=== PATIENT | male | born 1950 | race Caucasian/White ===

== ENCOUNTER 2017-09-07 14:52 | Emergency (ER) | payer MEDICARE, BC ==
[2017-09-07 15:52] VITALS: BP 147/80
[2017-09-07] MEDS ORDERED: Albuterol 2.5 MG/3 ML NEB.SOL* (0.083%) INH ONE (16:10)
[2017-09-07] MEDS ORDERED: Ipratropium 0.5MG/2.5ML NEB* 0.5 MG/2.5 ML NEB.SOLN INH ONE (16:10)
[2017-09-07] MEDS ORDERED: predniSONE TAB* 20 MG PO ONE (16:10)
--- NOTE | 2017-09-07 16:15 | UC ---
Respiratory Complaint HPI - HPI Summary HPI Summary: Patient presents with over one week of cough, wheeze and shortness of breath. No fever, ear pain, sore throat, nausea/vomiting. Is using inhaler at home with only transient relief. Saw his PCP 3 days ago and was diagnosed with a viral illness and given benzonatate to help with cough. Patient states symptoms have continued to worsen. He is feeling wheezy and short of breath. He reports frequent coughing fits and has occasional blood-tinged sputum. - History of Current Complaint Chief Complaint: UCRespiratory Stated Complaint: COUGH,CONGESTION Time Seen by Provider: 09/07/17 15:46 Hx Obtained From: Patient, Family/Cargo Supervisor - Onset/Duration: Gradual Onset, Lasting Days, Still Present Timing: Constant Severity Initially: Moderate Severity Currently: Moderate Pain Intensity: 0 Pain Scale Used: 0-10 Numeric Character: Cough: Productive Aggravating Factors: Deep Breaths Alleviating Factors: Bronchodilator Associated Signs And Symptoms: Positive: Dyspnea, Wheezing, URI. Negative: Fever, Chills, Pleuritic Chest Pain - Allergies/Home Medications Allergies/Adverse Reactions: Allergies Allergy/AdvReac Type Severity Reaction Status Date / Time No Known Allergies Allergy Verified 09/07/17 15:51 Home Medications: Home Medications Albuterol HFA INHALER* [Ventolin HFA Inhaler*] 1 puff INHH 09/07/17 [History] Atorvastatin* [Lipitor*] 10 mg PO DAILY 09/07/17 [History Confirmed 09/07/17] Benzonatate CAP* [Tessalon 100 MG CAP*] 100 mg PO Q6HR 09/07/17 [History Confirmed 09/07/17] guaiFENesin [Mucinex] 09/07/17 [History] PMH/Surg Hx/FS Hx/Imm Hx - Additional Past Medical History Additional PMH: GEORGINA ON CPAP Cardiovascular History: Hypertension Respiratory History: Asthma Cancer History: Prostate Cancer - Surgical History Surgery Procedure, Year, and Place: prostate surgery, hernia - Family History Known Family History: Positive: Hypertension - Social History Alcohol Use: Occasionally Substance Use Type: None Smoking Status (MU): Never Smoked Tobacco Review of Systems Constitutional: Fatigue Respiratory: Shortness Of Breath, Cough, Other - WHEEZE Cardiovascular: Negative Gastrointestinal: Negative All Other Systems Reviewed And Are Negative: Yes Physical Exam Triage Information Reviewed: Yes Appearance: Well-Appearing, No Pain Distress, Well-Nourished Vital Signs: Initial Vital Signs Temp 98.3 F 09/07/17 15:44 Pulse 64 09/07/17 15:44 Resp 20 09/07/17 15:44 BP 147/80 09/07/17 15:44 Pulse Ox 94 09/07/17 15:44 Vital Signs Reviewed: Yes Eyes: Positive: Conjunctiva Clear ENT: Positive: Hearing grossly normal, Pharynx normal, TMs normal Neck: Positive: Supple, Nontender, No Lymphadenopathy Respiratory: Positive: No respiratory distress, No accessory muscle use, Decreased breath sounds, Wheezing - DIFFUSELY, Other: - SPEECH IS SOMEWHAT PRESSURED. Cardiovascular Exam: Normal Abdomen Description: Positive: Nontender, Soft Musculoskeletal: Positive: No Edema Neurological: Positive: Alert Psychological: Positive: Age Appropriate Behavior Skin: Negative: rashes UC Diagnostic Evaluation - Laboratory O2 Sat by Pulse Oximetry: 94 - Radiology Xray Interpretation: No Acute Changes - CXR Radiology Interpretation Completed By: Radiologist Re-Evaluation - Re-Evaluation First Eval Re-Evaluation Time: 16:40 - PT FEELS IMPROVED AFTER 60MG PREDNISONE AND DUONEB. SPEAKING MORE EASILY Change: Improved Respiratory Course/Dx - Course Course Of Treatment: REPEAT PULSE OX 97% - Differential Dx/Diagnosis Provider Diagnoses: ACUTE BRONCHITIS WITH BRONCHOSPASM Discharge - Sign-Out/Discharge Documenting (check all that apply): Discharge - Discharge Plan Condition: Stable Disposition: HOME Prescriptions: Azithromycin 500 mg PO DAILY #5 tab Inhaler, Assist Devices [Aerochamber Mini Aerosol] 1 mis XX Q4H PRN #1 mis PRN Reason: Cough predniSONE TAB* [Deltasone TAB*] 50 mg PO DAILY #4 tab Patient Education Materials: Acute Bronchitis (ED), Bronchospasm (ED) Referrals: Eugene Simmons MD [Primary Care Provider] - If Needed Additional Instructions: CHEST XRAY TODAY UNREMARKABLE. YOU HAD SOME IMPROVEMENT IN SYMPTOMS AFTER DUONEB AND PREDNISONE. YOUR SYMPTOMS MAY BE VIRALLY MEDIATED BUT GIVEN THE LENGTH OF TIME YOU HAVE BEEN ILL AND THAT FACT THAT YOUR SYMPTOMS ARE WORSENING WE WILL COVER YOU WITH ANTIBIOTICS. IF YOU START THE MEDICINE BE SURE TO TAKE IT FOR THE FULL COURSE. REST, HYDRATE, OTC MEDS NEEDED. WILL ALSO TREAT WITH PREDNISONE TO HELP WITH AIRWAY INFLAMMATION. CONTINUE YOUR ALBUTEROL INHALER AND COUGH MEDICINE PRESCRIBED. SEEK FOLLOW-UP WITH YOUR PCP IF YOU ARE NOT IMPROVING OVER THE NEXT 1-2 WEEKS. - Billing Disposition and Condition Condition: STABLE Disposition: HOME
--- NOTE | 2017-09-07 16:36 | RAD ---
Indication: Cough, hemoptysis. 2 views of the chest including dual energy PA views demonstrate no mediastinal shift. Heart is of normal size and configuration. Lung vera are clear. IMPRESSION: No active cardiopulmonary disease is noted.
== END 2017-09-07 17:00 | disposition home or self-care (01) ==
LOC: UCEAST 14:52
DX: J20.9 Acute bronchitis, unspecified (principal)
CPT/HCPCS: 71046; 99212; G0463; J7512

== ENCOUNTER 2017-09-15 03:29 | Emergency (ER) | payer MEDICARE, BC ==
[2017-09-15] MEDS ORDERED: Albuterol/Ipratropium NEB.SOL* Albuterol 2.5 MG/Ipratropium 0.5 MG 3 ML ONE (03:50)
[2017-09-15] MEDS ORDERED: Albuterol/Ipratropium NEB.SOL* Albuterol 2.5 MG/Ipratropium 0.5 MG 3 ML INH ONE ×2 (03:54→04:10)
[2017-09-15] MEDS ORDERED: predniSONE TAB* 20 MG PO ONE (04:12)
[2017-09-15 04:40] LABS: ABS Basophils 0.1 10^3/ul (0-0.2); ABS Eosinophils 1.9 10^3/ul (0-0.6); ABS Lymphocytes 3.2 10^3/ul (1.0-4.8); ABS Monocytes 1.2 10^3/ul (0-0.8); ABS Neutrophils 6.9 10^3/ul (1.5-7.7); ABS Nucleated RBC 0 10^3/ul; Eosinophil % 14.3 % (0-6); Hematocrit 49 % (42-52); Hemoglobin 16.8 g/dl (14.0-18.0); Lymphocyte % 24.1 % (25-47); Mean Corpuscular HGB Conc 35 g/dl (31-36); Mean Corpuscular Hemoglobin 32 pg (27-31); Mean Corpuscular Volume 93 fL (80-94); Mean Platelet Volume 7.8 um3 (7.4-10.4); Nucleated Red Blood Cells % 0; Platelet Count 327 10^3/ul (150-450); Red Blood Count 5.19 10^6/ul (4.0-5.4); Red Cell Distribution Width 13 % (10.5-15); White Blood Count 13.3 10^3/ul (3.5-10.8)
[2017-09-15 04:46] LABS: INR 0.87 (0.77-1.02)
[2017-09-15 05:00] LABS: EGFR Non-African American 77.9 (>60)
[2017-09-15 05:18] VITALS: BP 142/65
--- NOTE | 2017-09-15 05:23 | ED ---
Koffi Lawrence Gabriel scribed for Elroy Lockhart on 09/15/17 at 0406 . Shortness of Breath - HPI Summary HPI Summary: This patient is a 66 year old M presenting to [facility] accompanied by his partner with a chief complaint of SOB that began tonight. The patient rates the pain 0/ 10 in severity. Patient denies CP. Pt was recently diagnosed with a URI/ bronchitis and is on prednisone and zithromax. - History of Current Complaint Chief Complaint: EDShortnessOfBreath Time Seen by Provider: 09/15/17 03:52 Hx Obtained From: Patient Onset/Duration: Still Present Timing: Constant Dyspnea At: Rest Associated Signs & Symptoms: Negative - CP - Allergy/Home Medications Allergies/Adverse Reactions: Allergies Allergy/AdvReac Type Severity Reaction Status Date / Time No Known Allergies Allergy Verified 09/15/17 03:37 PMH/Surg Hx/FS Hx/Imm Hx Cardiovascular History: Denies: Hx Cardiac Arrest, Hx Hypercholesterolemia, Hx Hypotension, Hx Peripheral Vascular Disease Respiratory History: Reports: Hx Asthma - WITH ALLERGIES History: Denies: Hx Chronic Renal Failure, Hx Dialysis Sensory History: Reports: Hx Contacts or Glasses Opthamlomology History: Reports: Hx Contacts or Glasses Neurological History: Denies: Hx Migraine - Cancer History Cancer Type, Location and Year: prostate cancer - Surgical History Surgery Procedure, Year, and Place: prostate surgery, hernia Infectious Disease History: No Infectious Disease History: Denies: Traveled Outside the [place] in Last 30 Days - Family History Known Family History: Positive: Hypertension - Social History Lives: With Family Alcohol Use: Occasionally Substance Use Type: Reports: None Smoking Status (MU): Never Smoked Tobacco Review of Systems Negative: Chest Pain Positive: Shortness Of Breath All Other Systems Reviewed And Are Negative: Yes Physical Exam - Summary Physical Exam Summary: Appearance: Well appearing, no pain distress Skin: warm, dry, reflects adequate perfusion Head/face: normal Eyes: EOMI, UZAIR ENT: normal Neck: supple, non-tender Respiratory: occasional bilateral wheeze Cardiovascular: RRR, pulses symmetrical Abdomen: non-tender, soft Bowel: present Musculoskeletal: normal, strength/ROM intact Neuro: normal, sensory motor intact, A&Ox3 Triage Information Reviewed: Yes Vital Signs On Initial Exam: Initial Vitals Temp Pulse Resp BP Pulse Ox 97.8 F 64 25 150/71 96 09/15/17 03:33 09/15/17 03:33 09/15/17 03:33 09/15/17 03:33 09/15/17 03:33 Vital Signs Reviewed: Yes Diagnostics - Vital Signs Vital Signs Temp Pulse Resp BP Pulse Ox 09/15/17 03:46 64 17 131/72 95 09/15/17 03:33 97.8 F 64 25 150/71 96 - Laboratory Lab Results: Lab Results 09/15/17 09/15/17 09/15/17 Range/Units 04:15 04:15 04:15 WBC 13.3 H (3.5-10.8) 10^3/ul RBC 5.19 (4.0-5.4) 10^6/ul Hgb 16.8 (14.0-18.0) g/dl Hct 49 (42-52) % MCV 93 (80-94) fL MCH 32 H (27-31) pg MCHC 35 (31-36) g/dl RDW 13 (10.5-15) % Plt Count 327 (150-450) 10^3/ul MPV 7.8 (7.4-10.4) um3 Neut % (Auto) 52.0 (38-83) % Lymph % (Auto) 24.1 L (25-47) % Banks % (Auto) 9.2 H (0-7) % Eos % (Auto) 14.3 H (0-6) % Baso % (Auto) 0.4 (0-2) % Absolute Neuts (auto) 6.9 (1.5-7.7) 10^3/ul Absolute Lymphs (auto) 3.2 (1.0-4.8) 10^3/ul Absolute Monos (auto) 1.2 H (0-0.8) 10^3/ul Absolute Eos (auto) 1.9 H (0-0.6) 10^3/ul Absolute Basos (auto) 0.1 (0-0.2) 10^3/ul Absolute Nucleated RBC 0 10^3/ul Nucleated RBC % 0 INR (Anticoag Therapy) 0.87 (0.77-1.02) APTT 30.3 (26.0-36.3) seconds D-Dimer, Quantitative < 200 (Less Than 230) ng/mL Sodium (139-145) mmol/L Potassium (3.5-5.0) mmol/L Chloride (101-111) mmol/L Carbon Dioxide (22-32) mmol/L Anion Gap (2-11) mmol/L BUN (6-24) mg/dL Creatinine (0.67-1.17) mg/dL Est GFR ( Amer) (>60) Est GFR (Non-Af Amer) (>60) BUN/Creatinine Ratio (8-20) Glucose (70-100) mg/dL Calcium (8.6-10.3) mg/dL Total Bilirubin (0.2-1.0) mg/dL AST (13-39) U/L ALT (7-52) U/L Alkaline Phosphatase (34-104) U/L Troponin I (<0.04) ng/mL B-Natriuretic Peptide 13 ( - 100) pg/mL Total Protein (6.4-8.9) g/dL Albumin (3.2-5.2) g/dL Globulin (2-4) g/dL Albumin/Globulin Ratio (1-3) 04//18 Range/Units 04:15 WBC (3.5-10.8) 10^3/ul RBC (4.0-5.4) 10^6/ul Hgb (14.0-18.0) g/dl Hct (42-52) % MCV (80-94) fL MCH (27-31) pg MCHC (31-36) g/dl RDW (10.5-15) % Plt Count (150-450) 10^3/ul MPV (7.4-10.4) um3 Neut % (Auto) (38-83) % Lymph % (Auto) (25-47) % Banks % (Auto) (0-7) % Eos % (Auto) (0-6) % Baso % (Auto) (0-2) % Absolute Neuts (auto) (1.5-7.7) 10^3/ul Absolute Lymphs (auto) (1.0-4.8) 10^3/ul Absolute Monos (auto) (0-0.8) 10^3/ul Absolute Eos (auto) (0-0.6) 10^3/ul Absolute Basos (auto) (0-0.2) 10^3/ul Absolute Nucleated RBC 10^3/ul Nucleated RBC % INR (Anticoag Therapy) (0.77-1.02) APTT (26.0-36.3) seconds D-Dimer, Quantitative (Less Than 230) ng/mL Sodium 137 L (139-145) mmol/L Potassium 4.3 (3.5-5.0) mmol/L Chloride 106 (101-111) mmol/L Carbon Dioxide 24 (22-32) mmol/L Anion Gap 7 (2-11) mmol/L BUN 14 (6-24) mg/dL Creatinine 0.96 (0.67-1.17) mg/dL Est GFR ( Amer) 100.2 (>60) Est GFR (Non-Af Amer) 77.9 (>60) BUN/Creatinine Ratio 14.6 (8-20) Glucose 106 H (70-100) mg/dL Calcium 9.1 (8.6-10.3) mg/dL Total Bilirubin 0.40 (0.2-1.0) mg/dL AST 19 (13-39) U/L ALT 41 (7-52) U/L Alkaline Phosphatase 62 (34-104) U/L Troponin I 0.00 (<0.04) ng/mL B-Natriuretic Peptide ( - 100) pg/mL Total Protein 6.8 (6.4-8.9) g/dL Albumin 4.3 (3.2-5.2) g/dL Globulin 2.5 (2-4) g/dL Albumin/Globulin Ratio 1.7 (1-3) Result Diagrams: 09/15/17 04:15 09/15/17 04:15 Lab Statement: Any lab studies that have been ordered have been reviewed, and results considered in the medical decision making process. - Radiology CXR Radiology Interpretation Completed By: ED Physician - no acute process - EKG 0426 Cardiac Rate: NL EKG Rhythm: Sinus Rhythm - at 64 BPM EKG Interpretation: no acute changes Course/Dx - Course Assessment/Plan: An EKG reveals NSR. CXR reveals, no acute process. Blood work obtained. In the ED course the patient was given duoneb and deltasone and the patient is feeling better. Patient will be discharged and follow up from PCP. The patient is agreeable with this plan. - Diagnoses Differential Diagnosis/HQI/PQRI: Positive: Bronchitis, COPD Exacerbation, Other - bronchospasm Provider Diagnoses: Bronchospasm, History of asthma Discharge - Sign-Out/Discharge Documenting (check all that apply): Discharge/Admit/Transfer - Discharge Plan Condition: Stable Disposition: HOME Prescriptions: predniSONE TAB* [Deltasone TAB*] 50 mg PO ONCE #4 tab Patient Education Materials: Bronchospasm (ED) Referrals: Eugene Simmons MD [Primary Care Provider] - 3 Days Additional Instructions: RETURN TO THE EMERGENCY DEPARTMENT FOR CHANGING OR WORSENING SYMPTOMS - Billing Disposition and Condition Condition: STABLE Disposition: HOME The documentation as recorded by the Koffi welch Gabriel accurately reflects the service I personally performed and the decisions made by , Elroy Lockhart.
--- NOTE | 2017-09-15 08:25 | RAD ---
Indication: Shortness of breath. Asthma. Comparison: September 07, 2017 Technique: Upright AP 0414 hours Report: Moderate elevation of the RIGHT hemidiaphragm increased over the prior exam. Overall the lung volumes appear elevated. No focal pulmonary lesion, compelling alveolar consolidation, pleural effusion, pneumothorax. The heart, pulmonary vasculature, and mediastinal contours are unremarkable. IMPRESSION: Stigmata of potential obstructive lung disease. No acute cardiopulmonary process evident.
== END 2017-09-15 05:30 | disposition home or self-care (01) ==
LOC: ED 03:29
DX: J98.01 Acute bronchospasm (principal); Z87.09 Personal history of other diseases of the respiratory system
CPT/HCPCS: 36415; 71045; 80053; 83880; 84484; 85025; 85379; 85610; 85730; 93005; 99283; A9270-GY; J7512

== ENCOUNTER 2018-06-15 15:29 | Emergency (ER) | payer MEDICARE, BC ==
--- OUTSIDE RECORDS SUMMARY | 2018-06-15 15:52 | XMS REPORT | Continuity of Care Document ---
:1950 External Reference #:[id number] Author Name Edson Arriola M.D. Address [address] [facility] [place] [address] Care Team Providers Name Role Phone Eugene Simmons M.D. Primary Care Physician Unavailable Payers Type Date Identification Numbers Payment Provider Subscriber Policy Number: [id number] Medicare - NGS Jeff Ferreira Moe PayID: [id number] [address] [place] [address] Policy Number: [id number] [facility] Jeff Ferreira Moe PayID: [id number] [address] [address] [place] [address] Advance Directives Description No Information Available Problems Date Description Provider Status Onset: 08/28/2015 Sleep apnea Chaparrita Hernandez O.D. Active Onset: Essential hypertension Active Onset: Seasonal allergy Active Onset: 08/30/2015 Combined form of senile cataract Chaparrita Hernandez O.D. Active Onset: 08/30/2015 Vitreous opacities Chaparrita Hernandez O.D. Active Onset: 08/30/2015 Hypermetropia Chaparrita Hernandez O.D. Active Onset: 08/30/2015 Presbyopia Chaparrita Hernandez O.D. Active Onset: 08/30/2015 Ocular hypertension Chaparrita Hernandez O.D. Active Onset: Bronchitis Active Onset: 05/25/2018 Primary open angle glaucoma of left Edson Arriola M.D. Active eye Onset: 05/25/2018 Primary open angle glaucoma of right Edson Arriola M.D. Active eye Onset: 05/04/2018 Bilateral primary open angle glaucoma Edson J. Arleo, M.D. 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 three days OD, then three times a day for three days OS. Only after procedure. Symbicort 11/09/ Active Aerosol 160-4.5mcg Unknown 2017 / Lisinopril / Active Tablets 5mg Unknown 0000 Atorvastatin / Active Tablets 10mg Unknown Calcium 0000 Levitra / Active Tablets 20mg Unknown 0000 Aspirin / Active Tablets 81mg Unknown 0000 Zyrtec Allergy / Active Tablets 10mg 1 by mouth Unknown 0000 every day Benadryl 00/ Active Capsules 25mg Unknown 0000 Albuterol / Active Nebulizer (2.5mg/3ML Unknown Sulfate 0000 ) 0.083% Multi Vitamin / Active Tablets Unknown 0000 Ipratropium / Active Solution 0.5-2.5(3) Inhale The Unknown [place] 0000 mg/3ML Contents Of rol Sulfate 1 Vial Via Nebulizer Every 4 Hours as Needed Immunizations Description No Information Available Vital Signs Date Vital Result Comment 06/01/2018 2:39pm BP Systolic 138 mmHg BP Diastolic 50 mmHg Heart Rate 66 /min Respiratory Rate 16 /min 05/25/2018 2:52pm BP Systolic 138 mmHg BP Diastolic 60 mmHg Heart Rate 68 /min Respiratory Rate 16 /min Results Description No Information Available Procedures Date Code Description Status 05/25/2018 56167 Trabeculoplasty By Laser Surgery Completed 05/04/2018 94106 Est Patient Intermediate Exam Completed 11/10/2017 47411 Scanning Computerized Ophthalmic Diagnostic Imag Posterior Completed Seg On 11/10/2017 45386 Visual Field Exam Extended Completed 11/10/2017 42445 Est Patient Comprehensive Exam Completed 03/04/2017 76917 Scanning Computerized Ophthalmic Diagnostic Imag Posterior Completed Seg On 03/04/2017 73170 Visual Field Exam Extended Completed 02/28/2017 61022 Determination Of Refractive State Completed 02/28/2017 49539 Est Patient Comprehensive Exam Completed 08/30/2015 95732 Determination Of Refractive State Completed 08/30/2015 83806 Est Patient Comprehensive Exam Completed 06/08/2013 06156 Determination Of Refractive State Completed 06/08/2013 55004 Est Patient Comprehensive Exam Completed 06/08/2013 31839 Pachymetry Completed 10/30/2010 26066 Est Patient Comprehensive Exam Completed 10/30/2010 20475 Determination Of Refractive State Completed 10/30/2010 18790 Computerized Corneal Topography Completed 06/01/2009 77276 Determination Of Refractive State Completed 06/01/2009 74033 Est Patient Comprehensive Exam Completed 02/04/2008 77789 Computerized Corneal Topography Completed 02/04/2008 39776 Determination Of Refractive State Completed 07/08/2007 77513 Excision/Transposition Pterygium W/Graft Completed 06/30/2007 53239 Photography Ocular External Completed 01/22/2007 47705 Computerized Corneal Topography Completed 01/22/2007 42146 Determination Of Refractive State Completed 01/22/2007 42407 Est Patient Comprehensive Exam Completed 05/09/2005 85189 Determination Of Refractive State Completed 05/09/2005 80119 Est Patient Comprehensive Exam Completed Encounters Type Date Location Provider Dx Diagnosis Office Visit 05/05/2017 Edson Jacinto, H40.053 Ocular 9:15a ella VERONICA M.D. hypertension, bilateral H25.813 Combined forms of age-related cataract, bilateral H43.393 Other vitreous opacities, bilateral Office Visit 03/04/2017 2:15p Edson Adler H40.053 Ocular hypertension, MD [facility] Arleo, M.D. bilateral H25.813 Combined forms of age-related cataract, bilateral Office Visit 02/04/2008 11:15a Edson Jacinto 372.40 Pterygium Unspec ella VERONICA M.D. Office Visit 06/30/2007 1:00p Edson Jacnito 372.40 Pterygium Unspec ella VERONICA M.D. Office Visit 06/18/2007 8:30a Edson Jacinto 372.40 Pterygium Unspec , Que Arriola. Plan of Treatment Future Appointment(s):07/13/2018 10:00 am - Edson Arriola M.D. at Edson Arriola MD, 06/01/2018 - Edson Arriola M.D.H40.1121 Primary open-angle glaucoma, left eye, mild stageComments:Smoking can increase the risk of developing or worsening any eye related disease, as well as affect your overall health. If you are a smoker, we strongly recommend that you quit.If you are not a smoker, we strongly recommend that you do not start. Dr. Arriola performed an Selective Laser Trabeculoplasty in the office today in your left eye. The vision in the left eye may be blurry because he used a thick eye drop in order to do the procedure. Before your procedure, Dr. Arriola sent in an anti- inflammatory eye drop (Pred Forte or Prednisolone) to your pharmacy. Use this eye drop three times a day through in your left eye, starting today. If you have any questions or concerns regarding your procedure, please call our office at .Follow up:6 weeks for an IOP check (Undilated)H40.1111 Primary open-angle glaucoma, right eye, mild [id number] Combined forms of age- related cataract, bilateral
[2018-06-15] MEDS ORDERED: NS 0.9% 1000 ML** 1,000 ML IV ONE (17:13)
[2018-06-15] MEDS ORDERED: methylPREDNISolone 125 MG* 2 ML VIAL IV ONE (17:13)
[2018-06-15] MEDS ORDERED: Magnesium Sulfate 1 GM IV* 1 GM/100 ML BAG IV ONE (17:18)
--- NOTE | 2018-06-15 17:18 | ED ---
Shortness of Breath - HPI Summary HPI Summary: A 67 y/o male accompanied by his presents to the ED c/o SOB. According to the patient, SOB became very severe last night, but he has been experiencing asthma-like symptoms for the past couple weeks. He stated that he was recently diagnosed with Bronchitis back in the middle to end of April and he was placed on steroids which ended the first week in May. He stated that the last week he has been experiencing more symptoms such as to the point where he has to use his nebulizer and albuterol treatments very frequently. He denies any sore throat, rhinorrhea, fevers, CP, chills, but does have a cough that brings up parks/brown flem, but he noted that this cough is much better compared to the one he had back in April. - History of Current Complaint Chief Complaint: EDShortnessOfBreath Time Seen by Provider: 06/15/18 17:09 Hx Obtained From: Patient Onset/Duration: Sudden Onset, Lasting Days, Still Present, Worse Since Timing: Constant Current Severity: None Dyspnea At: Rest Aggrevating Factors: Nothing Alleviating Factors: Nothing Associated Signs & Symptoms: Cough (Productive) - Allergy/Home Medications Allergies/Adverse Reactions: Allergies Allergy/AdvReac Type Severity Reaction Status Date / Time No Known Allergies Allergy Verified 06/15/18 15:45 PMH/Surg Hx/FS Hx/Imm Hx Cardiovascular History: Denies: Hx Cardiac Arrest, Hx Hypercholesterolemia, Hx Hypotension, Hx Peripheral Vascular Disease Respiratory History: Reports: Hx Asthma - WITH ALLERGIES History: Denies: Hx Chronic Renal Failure, Hx Dialysis Sensory History: Reports: Hx Contacts or Glasses Opthamlomology History: Reports: Hx Contacts or Glasses Neurological History: Denies: Hx Migraine - Cancer History Cancer Type, Location and Year: prostate cancer - Surgical History Surgery Procedure, Year, and Place: prostate surgery, hernia Infectious Disease History: No Infectious Disease History: Denies: Traveled Outside the [place] in Last 30 Days - Family History Known Family History: Positive: Hypertension - Social History Alcohol Use: Occasionally Substance Use Type: Reports: None Smoking Status (MU): Never Smoked Tobacco Review of Systems Negative: Fever, Chills Negative: Sore Throat, Nasal Discharge Negative: Chest Pain Positive: Shortness Of Breath, Cough All Other Systems Reviewed And Are Negative: Yes Physical Exam - Summary Physical Exam Summary: VITAL SIGNS: Reviewed. GENERAL: Patient is a well-developed and nourished (MALE OR FEMALE) who is lying comfortable in the stretcher. Patient is not in any acute respiratory distress. HEAD AND FACE: No signs of trauma. No ecchymosis, hematomas or skull depressions. No sinus tenderness. EYES: PERRLA, EOMI x 2, No injected conjunctiva, no nystagmus. EARS: Hearing grossly intact. Ear canals and tympanic membranes are within normal limits. MOUTH: Oropharynx within normal limits. NECK: Supple, trachea is midline, no adenopathy, no JVD, no carotid bruit, no c- spine tenderness, neck with full ROM. CHEST: Symmetric, no tenderness at palpation LUNGS: Decreased breath sounds bilaterally, diffuse wheezing, speaks in shorter sentences secondary to SOB CVS: Regular rate and rhythm, S1 and S2 present, no murmurs or gallops appreciated. ABDOMEN: Soft, non-tender. No signs of distention. No rebound no guarding, and no masses palpated. Bowel sounds are normal. EXTREMITIES: FROM in all major joints, no edema, no cyanosis or clubbing. NEURO: Alert and oriented x 3. No acute neurological deficits. Speech is normal and follows commands. SKIN: Dry and warm Triage Information Reviewed: Yes Vital Signs On Initial Exam: Initial Vitals Temp Pulse Resp BP Pulse Ox 97.9 F 73 16 148/79 96 06/15/18 15:38 06/15/18 15:38 06/15/18 15:38 06/15/18 15:38 06/15/18 15:38 Vital Signs Reviewed: Yes Diagnostics - Vital Signs Vital Signs Temp Pulse Resp BP Pulse Ox 06/15/18 15:38 97.9 F 73 16 148/79 96 - Laboratory Result Diagrams: 06/15/18 17:34 06/15/18 17:34 Lab Statement: Any lab studies that have been ordered have been reviewed, and results considered in the medical decision making process. - Radiology CXR Radiology Interpretation Completed By: ED Physician, Radiologist Summary of Radiographic Findings: NEGATIVE FOR ACUTE PULMONARY DISEASE. PENDING OFFICIAL REPORT. - EKG 1816 Cardiac Rate: NL - 83 BPM EKG Rhythm: Sinus Rhythm - 83 BPM Summary of EKG Findings: no ST elevation. Course/Dx - Course Assessment/Plan: A 67 y/o male accompanied by his presents to the ED c/o SOB. According to the patient, SOB became very severe last night, but he has been experiencing asthma-like symptoms for the past couple weeks. He stated that he was recently diagnosed with Bronchitis back in the middle to end of April and he was placed on steroids which ended the first week in May. He stated that the last week he has been experiencing more symptoms such as to the point where he has to use his nebulizer and albuterol treatments very frequently. He denies any sore throat, rhinorrhea, fevers, CP, chills, but does have a cough that brings up parks/brown flem, but he noted that this cough is much better compared to the one he had back in April. Blood work without any significant abnormality except for WBCs of 12.9. Chest x-ray impression: No acute cuddy pulmonary disease. EKG shows a sinus rhythm without any ST elevation. Initially the patient was very short of breath and he was speaking in short sentences. Patient was given DuoNebs, Solu-Medrol and magnesium. After the second treatment the patient is lying much better. And reexamination of the lungs: The lungs are still with diffuse wheezing present he has air movement. The patient does not have any intercostal retractions. At this point the patient will be signed out to Dr. Proctor at shift change. He is to reassess the patients wheezing and shortness of breath. He the patient is improved the patient can be discharged home however he if he doesnt get any better the patient should be admitted to the hospitalist for further workup and management. At this point the patient reports that he is feeling better. Patient is hemodynamically stable. - Diagnoses Differential Diagnosis/HQI/PQRI: Positive: Asthma Provider Diagnoses: Asthma exacerbation Discharge - Sign-Out/Discharge Documenting (check all that apply): Sign-Out Patient - HEIDY Signing out patient TO: Aureliano Aguilera Receiving patient FROM: Jaun Barragan - Discharge Plan Condition: Stable Referrals: Eugene Simmons MD [Primary Care Provider] - - Attestation Statements Document Initiated by Candidaibe: Yes Documenting Scribe: Jagjit Thomas Provider For Whom Ike is Documenting (Include Credential): Jaun Barragan MD Scribe Attestation: Jagjit Lawrence, scribed for Jaun Barragan MD on 06/15/18 at 1859. Status of Scribe Document: Viewed Attestations Scribe Attestation: Jagjit Thomas User Type: Provider
[2018-06-15] MEDS ORDERED: Albuterol/Ipratropium NEB.SOL* Albuterol 2.5 MG/Ipratropium 0.5 MG 3 ML ONE (17:25)
[2018-06-15] MEDS: Albuterol/Ipratropium NEB.SOL* Albuterol 2.5 MG/Ipratropium 0.5 MG 3 ML INH SCH ×3 (17:46→19:26)
[2018-06-15 17:53] LABS: ABS Basophils 0.1 10^3/ul (0-0.2); ABS Eosinophils 1.4 10^3/ul (0-0.6); ABS Lymphocytes 2.3 10^3/ul (1.0-4.8); ABS Monocytes 1.1 10^3/ul (0-0.8); ABS Neutrophils 8.1 10^3/ul (1.5-7.7); ABS Nucleated RBC 0 10^3/ul; Eosinophil % 11.2 %; Hematocrit 47 % (42-52); Hemoglobin 15.9 g/dl (14.0-18.0); Lymphocyte % 17.5 %; Mean Corpuscular HGB Conc 34 g/dl (31-36); Mean Corpuscular Hemoglobin 32 pg (27-31); Mean Corpuscular Volume 95 fL (80-94); Mean Platelet Volume 7.7 fL (7.4-10.4); Nucleated Red Blood Cells % 0; Platelet Count 368 10^3/ul (150-450); Red Blood Count 4.97 10^6/ul (4.00-5.40); Red Cell Distribution Width 14 % (10.5-15); White Blood Count 12.9 10^3/ul (3.5-10.8)
[2018-06-15 18:11] LABS: Albumin 4.5 g/dL (3.2-5.2); Albumin/Globulin Ratio 1.8 (1-3); BUN/Creatinine Ratio 14.3 (8-20); C Reactive Protein 4.8 mg/L (<8.01); Calcium 9.4 mg/dL (8.6-10.3); EGFR Non-African American 82.6 (>60); Globulin 2.5 g/dL (2-4); Potassium 4.3 mmol/L (3.5-5.0); Total Bilirubin 0.3 mg/dL (0.2-1.0)
[2018-06-15 18:16] LABS: CKMB ng/mL 5.3 ng/mL (0.6-6.3)
--- NOTE | 2018-06-15 20:10 | ED ---
Progress - Progress Note Progress Note: This patient was signed out from Dr. Barragan to Dr. Aguilera, pending dispo, awaiting another breathing treatment and re-eval. Upon 1st re-eval at 2000, the patient is still tachycardic with labored breathing, wheeing, and increased expiratory phase. Upon 2nd re-eval at 2112, the patient appears more comfortable. The patient has persistent wheezing but better aeration. This patient will be discharged with dx of asthma exacerbation. The patient understands and agrees with this plan. Course/Dx - Diagnoses Provider Diagnoses: Asthma exacerbation - Provider Notifications Time Discussed With Above Provider: 17:50 Instructed by Provider To: Other - accepts patient for involuntary admission Discharge - Sign-Out/Discharge Documenting (check all that apply): Patient Departure - D/C Patient Received Moderate/Deep Sedation with Procedure: No - Discharge Plan Condition: Improved Disposition: HOME Prescriptions: Azithromycin TAB* [Zithromax TAB (Z-ANTHONY) 250 mg #6 tabs] 250 mg PO DAILY #4 tab predniSONE TAB* [Deltasone 20 MG TAB*] 40 mg PO DAILY 5 Days #10 tab Patient Education Materials: Asthma (ED) Referrals: Eugene Simmons MD [Primary Care Provider] - 3 Days - Billing Disposition and Condition Condition: IMPROVED Disposition: Home - Attestation Statements Document Initiated by Ike: Yes Documenting Scribe: Rajeev Lopes Provider For Whom Ike is Documenting (Include Credential): Aureliano Aguilera MD Scribe Attestation: Rajeev Lawrence, scribed for Aureliano Aguilera MD on 06/17/18 at 2040. Scribe Documentation Reviewed: Yes Provider Attestation: The documentation as recorded by the Rajeev welch accurately reflects the service I personally performed and the decisions made by me, Aureliano Aguilera MD Status of Scribe Document: Viewed
[2018-06-15] MEDS ORDERED: Azithromycin TAB* 250 MG PO ONE (21:51)
[2018-06-15 22:17] VITALS: BP 139/81
== END 2018-06-15 22:15 | disposition home or self-care (01) ==
LOC: ED 15:29
DX: J45.901 Unspecified asthma with (acute) exacerbation (principal); R05 Cough
CPT/HCPCS: 36415; 71046; 80053; 82550; 82553; 83605; 83880; 84484; 85025; 85730; 86140; 87040; 93005; 96365; 96375; 99282; A9270-GY; J2930; J3475